=== PATIENT | female | born 1985 | race Caucasian/White ===

== ENCOUNTER → 2017-07-26 | Outpatient (CLI) | payer OTHER ==
[2016-06-15 21:00] VITALS: BP 126/78
[~2017-07-26] MED LIST: AMOX500C PO; ONDA8TAB12 PO
--- NOTE | 2017-07-26 11:48 | RAD ---
Pelvic ultrasound, 07/26/2017: History: History of ovarian cyst Transabdominal and transvaginal scans were obtained. The uterus measures 9 x 6 x 4.5 cm. A normal central uterine echo complex is evident measuring 5-6 mm. The ovaries are within normal limits in size. Small follicular cysts are present in the right ovary. There is a small elongated cystic area present along the margin of the left ovary, measuring approximately 1 x 2 x 2 cm. A similar cystic structure was evident on the 04/29/2015 exam. Its angular margins suggests a partially collapsed ovarian cyst versus a small paraovarian cyst. No new or enlarging ovarian process is seen. No free fluid is evident in the pelvis. IMPRESSION: 1. Stable small left ovarian or paraovarian cyst. 2. No new pelvic abnormality is detected.
== END | disposition home or self-care (01) ==
LOC: US 08:50
PROVIDERS: ATTEND Internal Medicine Hematology & Oncology
DX: N83.202 Unspecified ovarian cyst, left side (principal)
CPT/HCPCS: 76830; 76856

== ENCOUNTER 2017-10-24 17:18 | Emergency (ER) | payer OTHER ==
[~2017-10-24] VITALS: Ht 160 cm; Wt 77.1 kg
[2017-10-24] MEDS ORDERED: 0.9 % SODIUM CHLORIDE 10 ML DISP.SYRIN. IV PRN (17:45)
--- NOTE | 2017-10-24 17:56 | PHYS DOC ---
Past History Past Medical History: Cancer, Other Additional Past Medical Histor: colon cancer Past Surgical History: Appendectomy, Other Smoking: Non-smoker Alcohol Use: None Drug Use: None Adult General Chief Complaint Chief Complaint: ABDOMINAL PAIN [facility] 32-year-old female patient with history of colon cancer and left partial colectomy 1.5 year ago complaining of sudden onset of left lower quadrant pain since last night as a constant sharp pain without radiation. Patient complaining of nausea and decrease of appetite without vomiting, fever and chills, urinary symptom, pelvic pain. Patient states she had a normal bowel movement last night but she passes gas less than her usual. She complaining of mild distention of her abdomen. Patient rated her pain 9/10. Patient states she is concern for possible intestinal obstruction. Patient had unremarkable CT of abdomen and pelvis 4 days ago by her oncologist. Patient denies and states her LMP was 1 week ago. Review of Systems Review of Systems Constitutional: Denies fever or chills [] Eyes: Denies change in visual acuity, redness, or eye pain [] HENT: Denies nasal congestion or sore throat [] Respiratory: Denies cough or shortness of breath [] Cardiovascular: No additional information not addressed in HPI [] GI: Reports abdominal pain, nausea, vomiting, denies bloody stools or diarrhea [ ] : Denies dysuria or hematuria [] Musculoskeletal: Denies back pain or joint pain [] Integument: Denies rash or skin lesions [] Neurologic: Denies headache, focal weakness or sensory changes [] Endocrine: Denies polyuria or polydipsia [] All other systems were reviewed and found to be within normal limits, except as documented in this note. Allergies Allergies Allergies Coded Allergies Type Severity Reaction Last Updated Verified Sulfa (Sulfonamide Antibiotics) Allergy Intermediate Hives 03/14/15 Yes acetaminophen Allergy Intermediate Hives 03/14/15 Yes hydrocodone Allergy Intermediate Hives 03/14/15 Yes Physical Exam Physical Exam Constitutional: Well developed, well nourished, mild distress, non-toxic appearance. [] HENT: Normocephalic, atraumatic, oropharynx moist Eyes: PERRLA, EOMI, conjunctiva normal, no discharge. [] Neck: Normal range of motion, no tenderness, supple, no stridor. [] Cardiovascular: Tachycardia, no murmur [] Lungs & Thorax: Bilateral breath sounds clear to auscultation [] Abdomen: Bowel sounds normal, soft, guarding and mild tenderness in lower quadrant, no masses, no pulsatile masses, clean midline surgical scar above umbilicus. [] Skin: Warm, dry, no erythema, no rash. [] Back: No tenderness, no CVA tenderness. [] Extremities: No tenderness, no cyanosis, no clubbing, ROM intact, no edema. [] Neurologic: Alert and oriented X 3, normal motor function, normal sensory function, no focal deficits noted. [] Psychologic: Anxious, judgement normal, mood normal. [] EKG EKG [] Radiology/Procedures Radiology/Procedures [] Course & Med Decision Making Course & Med Decision Making Pertinent Labs and Imaging studies are pending. Patient care transferred to incoming to ER physician at 1800. Vane Disclaimer Dragon Disclaimer This electronic medical record was generated, in whole or in part, using a voice recognition dictation system. Departure Departure: Referrals: AUSTIN WILCOX (PCP) RODNEY JANSEN MD Oct 24, 2017 17:56
[2017-10-24] MEDS ORDERED: IV NORMAL SALINE 1,000ML 1,000 ML IV SCH (18:00)
[2017-10-24] MEDS ORDERED: IOHEXOL 300 MG/ML 75 ML VIAL. IV ONE (18:00)
[2017-10-24] MEDS ORDERED: IOHEXOL 240 MG/ML 50ML VIAL. PO ONE (18:00)
[2017-10-24] MEDS ORDERED: CONTRAST GIVEN MC PRN (18:00)
[2017-10-24 18:10] LABS: BASO % 0 % (0-3); EOS # 0.2 x10^3/uL (0.0-0.7); EOS % 2 % (0-3); HEMOGLOBIN 13.3 g/dL (12.0-15.5); LYMPH # 2.5 x10^3/uL (1.0-4.8); LYMPH % 19 % (24-48); MEAN CORPUSCULAR HEMOGLOBIN 32 pg (25-35); MEAN CORPUSCULAR HGB CONC 34 g/dL (31-37); MEAN CORPUSCULAR VOLUME 93 fL (79-100); MONO # 1.1 x10^3/uL (0.0-1.1); MONO % 8 % (0-9); NEUT # 9.8 x10^3uL (1.8-7.7); NEUT % 72 % (31-73); PLATELET COUNT 352 x10^3/uL (140-400); RED BLOOD COUNT 4.21 x10^6/uL (3.50-5.40); RED CELL DISTRIBUTION WIDTH 12.3 % (11.5-14.5); WHITE BLOOD COUNT 13.8 x10^3/uL (4.0-11.0)
[2017-10-24] MEDS ORDERED: KETOROLAC 30 MG/ML VIAL. IV ONE (18:15)
[2017-10-24] MEDS ORDERED: ONDANSETRON PF 4 MG/2 ML VIAL. IV ONE (18:15)
[2017-10-24 18:17] LABS: ALBUMIN 3.5 g/dL (3.4-5.0); ALBUMIN/GLOBULIN RATIO 0.9 (1.0-1.7); CALCIUM 8.6 mg/dL (8.5-10.1); CREATININE 1.1 mg/dL (0.6-1.0); GFR 56.9; POTASSIUM 3.7 mmol/L (3.5-5.1); TOTAL BILIRUBIN 0.6 mg/dL (0.2-1.0); TOTAL PROTEIN 7.5 g/dL (6.4-8.2)
[2017-10-24 18:44] LABS: BILIRUBIN,URINE NEG (NEG); CLARITY,URINE CLEAR; COLOR,URINE STRAW; GLUCOSE,URINE NEG (NEG); NITRITE,URINE NEG (NEG); UROBILINOGEN,URINE 0.2 mg/dL (0.2 mg/dL)
[2017-10-24 18:45] LABS: BACTERIA,URINE 0 /HPF (0-FEW); SQUAMOUS EPITHELIAL CELL,UR OCC /LPF; WBC,URINE OCC /HPF (0-4)
[2017-10-24 18:48] LABS: RBC,URINE OCC /HPF (0-2)
--- NOTE | 2017-10-24 19:54 | RAD ---
CT SCAN OF THE ABDOMEN AND PELVIS WITH IV CONTRAST. History: Partial colectomy one half years ago and appendectomy left lower quadrant pain Comparison: March 19, 2016. Procedure: Contiguous axial images of the abdomen and pelvis were performed after the administration of 75 cc of Omni 300 IV contrast and oral contrast. CT Abdomen with contrast: Findings: There has been prior partial colectomy with removal of the splenic flexure of the colon. There is a suture line seen and there is moderate wall thickening associated with the anastomosis simulating a mass that measures 4.5 x 1.6 cm. Liver: Unremarkable Spleen: Unremarkable Pancreas: Unremarkable Adrenal Glands: Unremarkable Kidneys: Unremarkable There is no mass or lymphadenopathy. There is no free air. There is no free fluid. CT Pelvis with Contrast: Findings: The urinary bladder appears normal. There is no free fluid. There is no lymphadenopathy. The uterus and ovaries appear within normal limits. There is mild wall thickening of the terminal ileum. There is evidence of prior appendectomy. Impression: 1. Moderate wall thickening seen at the anastomosis on the left simulating a possible mass. This is of concern for recurrent adenocarcinoma. 2. Mild wall thickening of the terminal ileum could be inflammatory or infectious enteritis. PQRS Compliance Statement: One or more of the following individualized dose reduction techniques were utilized for this examination: 1. Automated exposure control 2. Adjustment of the mA and/or kV according to patient size 3. Use of iterative reconstruction technique Electronically signed by: Shoaib Wilson III, MD (10/24/2017 7:51 PM) [id number]
[2017-10-24 20:22] VITALS: BP 110/58
[2017-10-24] MEDS ORDERED: METR500T PO (21:00)
[2017-10-24] MEDS ORDERED: CIPR500T94 PO (21:00)
[2017-10-24] MEDS ORDERED: HYOS0.1265 SL (21:00)
[2017-10-24] MEDS ORDERED: ONDA4TAB10 SL (21:00)
[2017-10-24] MEDS ORDERED: metroNIDAZOLE 500 MG TABLET PO ONE (21:30)
[2017-10-24] MEDS ORDERED: CIPROFLOXACIN HCL 500 MG TABLET PO ONE (21:30)
== END 2017-10-24 21:17 | disposition home or self-care (01) ==
LOC: ER 17:18
DX: K52.9 Noninfective gastroenteritis and colitis, unspecified (principal); D72.829 Elevated white blood cell count, unspecified; Z90.49 Acquired absence of other specified parts of digestive tract; Z88.2 Allergy status to sulfonamides; Z88.6 Allergy status to analgesic agent; Z88.5 Allergy status to narcotic agent
CPT/HCPCS: 36415; 74177; 80053; 81001; 83690; 85025; 96361; 96374; 96375; 99285; J1885; J2405; Q9966; Q9967; J7030